=== PATIENT | female | born 1965 | race Caucasian/White ===

== ENCOUNTER 2022-11-24 14:43 | Outpatient (REF) | payer OTHER, SELFPAY ==
[2022-11-24 15:00] LABS: MANUAL DIFF FLAG NO
[2022-11-24 15:25] LABS: Basophils Absolute Auto 0.1 X10*3/uL (0.0-0.2); Basophils Percent Auto 0.7 % (0-2); Eosinophils Absolute Auto 0.2 X10*3/uL (0.0-0.4); Eosinophils Percent Auto 1.7 % (0-4); Hematocrit 43.2 % (37.0-47.0); Hemoglobin 13.9 g/dl (12.0-16.0); Imm Gran Abs Auto 0.03 X10*3/uL (0.00-0.03); Imm Gran Pct Auto 0.3 % (0.0-0.4); Lymphocytes Absolute Auto 2.9 X10*3/uL (1.2-4.9); Lymphocytes Percent Auto 32.8 % (20-40); Mean Corpuscular HGB Conc 32.2 g/dl (31.0-35.0); Mean Corpuscular Hemoglobin 29.1 pg (27.0-33.0); Mean Corpuscular Volume 90.6 fL (80.0-98.0); Mean Platelet Volume 10.5 fL (9.4-12.3); Monocytes Absolute Auto 0.7 X10*3/uL (0.1-1.2); Monocytes Percent Auto 7.7 % (2-11); Neutrophils Percent Auto 56.8 % (45-73); Platelet Count 264 X10*3/uL (160-400); Red Blood Count 4.77 X10*6/uL (4.20-5.50); Red Cell Distribution Width 12.5 % (11.0-16.0); White Blood Count 8.8 X10*3/uL (4.8-10.8)
[2022-11-24 15:53] LABS: Alanine Aminotransferase 28 U/L (0-31); Albumin Level 4.5 g/dL (3.5-5.0); Alkaline Phosphatase 54 U/L (39-117); Anion Gap 13 (12-20); Aspartate Amino Transferase 26 U/L (5-31); Bilirubin Total 0.5 mg/dL (0.0-1.0); Blood Urea Nitrogen 18 mg/dL (9-16); Carbon Dioxide 30 mmol/L (22-29); Chloride 105 mmol/L (96-108); Estimated Glomerular Filt Rate > 60; Glucose Random 90 mg/dL (60-115); Potassium 4.2 mmol/L (3.3-5.1); Sodium 144 mmol/L (135-145); Total Protein 6.8 g/dL (6.5-8.0)
== END 2022-11-24 14:44 | disposition home or self-care (01) ==
LOC: HO.LAB 14:43
PROVIDERS: PCP Internal Medicine; Visit Provider Physician Assistant
DX: R14.0 Abdominal distension (gaseous) (principal); K58.9 Irritable bowel syndrome, unspecified; Z80.0 Family history of malignant neoplasm of digestive organs
CPT/HCPCS: 36415; 80053; 85025

== ENCOUNTER 2023-01-26 07:37 | Day surgery (SDC) | payer OTHER, SELFPAY ==
[2023-01-23 09:46] VITALS: BMI 29.0
--- NOTE | 2023-01-25 12:29 | HO.ANESPROP2 ---
Documented by User: Raisa Garcia NP 01/25/23 12:29 HPI - Anesthesia Eval Consult details Narrative: 57yo F for Colonoscopy [facility] Active Problems Active Problems: All Active Problems (Updated 01/23/23 @ 09:43 by Alissa Galvan, [place]) Encounter for screening colonoscopy (Acute) Family history of colon cancer in father (Acute) Bloating (Acute) Past Medical History Medical History (Updated 01/23/23 @ 09:43 by Alissa Galvan RN) No pertinent past medical history Family History Family History Father Colon cancer Mother Breast cyst Stroke Alzheimer disease Sister Lupus Diabetes Breast cyst Surgical History Surgical History (Updated 01/23/23 @ 09:41 by Alissa Galvan RN) Hx of abdominal hysterectomy Hx of appendectomy Hx of bilateral breast reduction surgery Hx of colonoscopy Hx of tubal ligation Social History Social History Household Members: Spouse Alcohol intake: current Alcohol intake frequency: holidays/special occasions only Patient Tobacco Use Status: Former Tobacco user Use of substances other than those prescribed or required for medical reasons: No Substance Use Type Other:: gummie Are you DNR?: No Advance Directives: No Advance Directives Information Provided: Yes Recently lost weight without trying: No Nutrition Risks: No Nutritional Risk Meds Allergies Allergy/AdvReac Type Severity Reaction Status Date / Time No Known Allergies Allergy Verified 09/13/22 08:08 [No Known Allergies*] Home Medications Medication Instructions Recorded Confirmed Last Taken Type No Known Home Meds 01/26/23 01/26/23 Unknown History Exam Exam Date and Time: January 25, 2023 1229 Height,Weight and Vital Signs: Height 5 ft 1 in Weight 69.853 kg Assessment and Plan Assessment Anesthesia Assessment: Chart Reviewed Documented by User: Lali Goel MD 01/26/23 08:58 PMFSH Past Medical History Medical History (Updated 01/23/23 @ 09:43 by Alissa Galvan RN) No pertinent past medical history Family History Family History Father Colon cancer Mother Breast cyst Stroke Alzheimer disease Sister Lupus Diabetes Breast cyst Family history of problems with anesthesia: No Surgical History Surgical History (Updated 01/23/23 @ 09:41 by Alissa Galvan RN) Hx of abdominal hysterectomy Hx of appendectomy Hx of bilateral breast reduction surgery Hx of colonoscopy Hx of tubal ligation History of Problems with Anesthesia: No Social History Social History Household Members: Spouse Alcohol intake: current Alcohol intake frequency: holidays/special occasions only Patient Tobacco Use Status: Former Tobacco user Use of substances other than those prescribed or required for medical reasons: No Substance Use Type Other:: gummie Are you DNR?: No Advance Directives: No Advance Directives Information Provided: Yes Recently lost weight without trying: No Nutrition Risks: No Nutritional Risk Meds Allergies Allergy/AdvReac Type Severity Reaction Status Date / Time No Known Allergies Allergy Verified 09/13/22 08:08 [No Known Allergies*] Home Medications Medication Instructions Recorded Confirmed Last Taken Type No Known Home Meds 01/26/23 01/26/23 Unknown History Exam Airway Mallampati Class: II TM Dist: >3cm Neck ROM: Full Heart: rr Lungs: cta Assessment and Plan Assessment Anesthesia Assessment: Anesthesia Plan Discussed Final Anesthetic Review Family History of Problems with Anesthesia: No History of Problems with Anesthesia: No NPO: Yes ASA Class: II Final Preanesthetic Review: No Changes in Pt Med Stat, Meds/Allgs Chart Reviewed, Consent Obtained/Reviewed and Anes Risks/Benef Reviewed Patient Risk: Low Procedure Risk: Low Anesthetic Plan Anesthetic Plan: MAC: Disposition: Standard PACU
[2023-01-26 07:45] VITALS: BMI 29.5
[2023-01-26 07:54] VITALS: BP 116/77; PULSE 69; RESP 16; TEMP 36.8; O2SAT 98
[2023-01-26] MEDS: Lactated Ringers 1,000 ML 100 ML IVCONT (08:09)
--- NOTE | 2023-01-26 08:27 | MHC.SHP ---
Pre-Procedural Eval Section A Date of Service: 01/26/23 The patient is an INPATIENT: No The History & Physical has been completed within 30 days and I have reviewed it.: No Section B Chief Complaint: screening,fam hx of neoplasm,abd distension Relevant Family History (Specify if Yes): Yes Relevant Social History: Tobacco Use (Former smoker) Present Medications: see Short Stay Collaborative assessment Medical History: No relevant PMH History of Previous Operations: Relevant previous surgery/procedure and date(s) (Hx of abdominal hysterectomy Hx of appendectomy Hx of bilateral breast reduction surgery Hx of colonoscopy Hx of tubal ligation) Allergies: Allergies Allergy/AdvReac Type Severity Reaction Status Date / Time No Known Allergies Allergy Verified 09/13/22 08:08 [No Known Allergies*] Review of Systems Sugical H&P ROS: Negative: Constitution, Cardiovascular, Respiratory and Gastrointestinal Exam Surgical H&P Exam: Normal: Heart, Normal: Lungs and Normal: Abdomen Plan Diagnosis/Plan: Unchanged I have reviewed the history and physical and performed a pertinent physical examination on my patient. No changes have occurred unless specified. Time Spent With Patient Time: Total time managing care of this patient today ____ minutes.
--- NOTE | 2023-01-26 08:42 | W.PM.OPN ---
Operative Note Operative Note Date of Service: 01/26/23 Narrative: COLONOSCOPY TILL CECUM WITH Indication:? Colon cancer screening Endoscopist:? Memo Horta MD Anesthesia Provider:?Dr Goel Anesthesia type:?MAC Consent: Indications for the procedure and potential complications of bleeding, perforation, reaction to medications and missed diagnosis were discussed with the patient and informed consent was obtained. Instrument: Olympus PCF H 190 L variable stiffness pediatric colonoscope Monitoring: Vital signs and clinical assessment, intermittent blood pressure monitoring, continuous EKG monitoring, Pulse oximetry and Carbon Dioxide monitoring were done throughout the procedure. Please see anesthesia flowsheet. Colon withdrawl time was 14 minutes. Procedure: The patient was placed in the left lateral decubitis position and pre-procedure medications were administered. After a digital rectal examination of the ano-rectum, the video colonoscope was inserted into the rectum and advanced through the colon to the cecum. The colonoscope was slowly withdrawn in a retrograde panoramic fashion and the colon mucosa was carefully examined including a retroflexed view of the rectum. Findings and interventions are described below. Procedure Difficulty: Without difficulty Findings: Terminal Ileum: Not evaluated Cecum: A 1 cms non-bleeding AVM Ascending Colon: Normal Transverse Colon: Normal Descending Colon: Normal Sigmoid Colon: A 10 mm diminutive appearing polyp - removed with a cold snare and a cold biopsy. Moderate diverticulosis Rectum: Normal Ano-rectum: Small internal hemorrhoids Colon preparation: Good Impression and Post Procedure Diagnosis: Colonoscopy Findings: One medium sized polyp removed A 1 cms non-bleeding AVM in the cecum Moderate diverticulosis seen in the sigmoid colon Small hemorrhoids on retroflexed exam. Plan: I will send a letter with pathology results Repeat Colonoscopy interval based on path results - in 3-5 years if polyps are adenomatous and 10 years if polyps are hyperplastic. Above findings were reviewed with the patient and colon polyps and diverticulosis handouts were given in the discharge area
[2023-01-26 09:16] VITALS: BP 84/51; PULSE 78; RESP 16; TEMP 36.4; O2SAT 93
[2023-01-26 09:31] VITALS: BP 93/56; PULSE 65; RESP 16; O2SAT 95
[2023-01-26 09:46] VITALS: BP 102/60; PULSE 65; RESP 16; TEMP 36.2; O2SAT 97
== END 2023-01-26 10:55 | disposition home or self-care (01) ==
PROVIDERS: PCP Internal Medicine; Visit Provider Internal Medicine Gastroenterology
PROC: 0DJD8ZZ Inspection of Lower Intestinal Tract, Via Natural or Artificial Opening Endoscopic (ICD-10-PCS; CPT 45378; principal; 2023-01-26 08:30)
DX: Z12.11 Encounter for screening for malignant neoplasm of colon (principal); Z80.0 Family history of malignant neoplasm of digestive organs; K63.5 Polyp of colon; R14.0 Abdominal distension (gaseous); K57.30 Diverticulosis of large intestine without perforation or abscess without bleeding; K64.8 Other hemorrhoids; K55.20 Angiodysplasia of colon without hemorrhage; Z87.891 Personal history of nicotine dependence
CPT/HCPCS: 45385; 45380; 88305

== ENCOUNTER 2023-05-28 08:32 | Outpatient (AMB) | payer OTHER, SELFPAY ==
--- NOTE | 2023-05-28 08:55 | MHC.OFFWIV ---
Intake Vital Signs 05/28/23 08:56 Height 5 ft 1 in Weight 156 lb BMI 29.5 BP 120/76 Blood Pressure Location Rt brachial Position Sitting Respiration 12 Pulse 71 Pulse Source Pulse Oximeter Temp 97.1 F Temp Source Temporal Artery Scan Pulse Oximetry (%) 99 Oxygen Delivery Method Room Air Intake Visit Reasons: [facility] Eye (Right eye) Intake Note: Patient states that all she remembers is her rubbing her eyes before bed and then when she woke up her eye was red and had gunk coming out of it. 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 She reports associated mild both vision and intermittent pain to the right medial canthus. She reports clear drainage with some crust upon waking up this morning. No headache, dizziness, fever, chills, body aches, fatigue, or weakness. Denies sick contact. [facility] Medical History (Updated 05/28/23 @ 09:17 by Jordon Garcia CNP) No pertinent past medical history Surgical History (Updated 01/23/23 @ 09:41 by Alissa Galvan RN) Hx of abdominal hysterectomy Hx of appendectomy Hx of bilateral breast reduction surgery Hx of colonoscopy Hx of tubal ligation Family History Father Colon cancer Mother Breast cyst Stroke Alzheimer disease Sister Lupus Diabetes Breast cyst Social History Household Members: Spouse Alcohol intake: current Alcohol intake frequency: holidays/special occasions only Patient Tobacco Use Status: Former Tobacco user Review of Systems Const Details: Const Denies chills, Denies fatigue, Denies fever(s), Denies headache(s) and Denies weakness ENT Reports as per HPI Resp Denies cough, Denies dyspnea, Denies wheezing and Denies other (shortness of breath) Cardio Denies chest pain, Denies lightheadedness, Denies dyspnea and Denies other (palpitations) Neuro Denies dizziness, Denies headache(s), Denies numbness, Denies tingling and Denies weakness Psych Denies anxiety, Denies depression, Denies memory?loss Endo Denies fatigue Aller/Immun Denies wheezing Physical Exam Vital Signs: Last Vital Signs Temp 97.1 F 05/28/23 08:56 Pulse 71 05/28/23 08:56 Resp 12 05/28/23 08:56 BP 120/76 05/28/23 08:56 Pulse Ox 99 05/28/23 08:56 Oxygen Delivery Method Room Air 05/28/23 08:56 BMI result Body Mass Index 29.5 Const Other: Const General: well developed; No acute distress Nutritional Appearance: well nourished Orientation/consciousness: patient oriented x3 HEENT Head is normocephalic Conjunctiva of the right eye with significant erythema, clear drainage noted, no overt trauma or foreign object, no periorbital edema Bilateral ear canal and TM are normal Nasal turbinates and oropharynx are pink and moist Sinuses are nontender with palpation No auricular or cervical lymphadenopathy Eyes General: appearance normal, both eyes and all related structures Pupils: Equal, round and reactive pupils present EOM: EOMs intact bilaterally Resp Effort & Inspection: normal respiratory effort Auscultation: clear to auscultation bilaterally Cardio Rate: regular rate Rhythm: regular rhythm Heart sounds: S1 normal heart sound present, S2 normal heart sound present, no gallops, no murmurs and no rubs Bruits: no abdominal aortic bruits and no carotid bruits Neuro General: patient oriented x3 and gait normal, no focal neuro deficit Cranial nerves: Yes Equal, round and reactive pupils present Psych Affect: normal affect Assessment & Plan Assessment & Plan (1) Bacterial conjunctivitis: Code(s): H10.9 - Unspecified conjunctivitis Plan: Conjunctiva of the right eye with significant erythema, clear drainage noted, no overt trauma or foreign object, no periorbital edema Ofloxacin eyedrops as prescribed Warm compresses encouraged Return with new or worsening signs and symptoms Verbalized understanding and agreed with treatment plan. Medications: New levofloxacin 1.5% 1-2 gtt right eye q2h while awake x2 days, then q4h while awake x 5 days; Max:8 doses/day on days 1-2, 4 doses/day on days 3-7 5 mL 0RF 7 days Coding Level of Care Code New Pt Level 2 (66408) Diagnoses Bacterial conjunctivitis H10.9
[2023-05-28 08:56] VITALS: BP 120/76; PULSE 71; RESP 12; TEMP 36.2; O2SAT 99; BMI 29.5
== END 2023-05-28 09:16 | disposition home or self-care (01) ==
PROVIDERS: PCP Internal Medicine; Visit Provider Nurse Practitioner Family
DX: H10.9 Unspecified conjunctivitis (principal)
CPT/HCPCS: 99202

== ENCOUNTER 2023-06-22 13:40 | Outpatient (REF) | payer OTHER, SELFPAY ==
[2023-06-22 13:58] LABS: MANUAL DIFF FLAG NO
[2023-06-22 14:15] LABS: Basophils Absolute Auto 0.1 X10*3/uL (0.0-0.2); Basophils Percent Auto 0.5 % (0-2); Eosinophils Absolute Auto 0.1 X10*3/uL (0.0-0.4); Hematocrit 43.2 % (37.0-47.0); Hemoglobin 14.4 g/dl (12.0-16.0); Imm Gran Abs Auto 0.04 X10*3/uL (0.00-0.03); Imm Gran Pct Auto 0.4 % (0.0-0.4); Lymphocytes Percent Auto 31.2 % (20-40); Mean Corpuscular HGB Conc 33.3 g/dl (31.0-35.0); Mean Corpuscular Hemoglobin 30.1 pg (27.0-33.0); Mean Corpuscular Volume 90.4 fL (80.0-98.0); Mean Platelet Volume 10.4 fL (9.4-12.3); Monocytes Absolute Auto 0.6 X10*3/uL (0.1-1.2); Monocytes Percent Auto 6.4 % (2-11); Neutrophils Absolute Auto 5.9 x10*3/uL (2.0-8.3); Neutrophils Percent Auto 60.5 % (45-73); Platelet Count 338 X10*3/uL (160-400); Red Blood Count 4.78 X10*6/uL (4.20-5.50); White Blood Count 9.7 X10*3/uL (4.8-10.8)
[2023-06-22 16:38] LABS: Alanine Aminotransferase 15 U/L (0-31); Albumin Level 4.4 g/dL (3.5-5.0); Alkaline Phosphatase 61 U/L (39-117); Anion Gap 15 (12-20); Aspartate Amino Transferase 18 U/L (5-31); Bilirubin Total 0.4 mg/dL (0.0-1.0); Blood Urea Nitrogen 9 mg/dL (9-16); Calcium 9.9 mg/dL (8.4-10.2); Carbon Dioxide 26 mmol/L (22-29); Chloride 104 mmol/L (96-108); Estimated Glomerular Filt Rate > 60; Glucose Random 154 mg/dL (60-115); Iron 66 mcg/dL (30-160); Percent Iron Saturation 24 % (15-50); Potassium 3.6 mmol/L (3.3-5.1); Sodium 141 mmol/L (135-145); Total Iron Binding Capacity 274 mcg/dL (228-428); Total Protein 7.3 g/dL (6.5-8.0); Unsaturated Iron Binding 208 ug/dL
[2023-06-22 16:47] LABS: Vitamin B12 434 pg/mL (200-900)
[2023-06-22 17:06] LABS: Ferritin 290 ng/mL (10-250); T4 Thyroxine 8.5 ug/dL (4.5-12.0); Thyroid Stimulating Hormone 1.66 uIU/mL (0.32-4.0); Vitamin D 25-OH Total 42.3 ng/mL (>30)
== END 2023-06-22 13:41 | disposition home or self-care (01) ==
LOC: HO.LAB 13:40
PROVIDERS: PCP Internal Medicine; Visit Provider Physician Assistant Medical
DX: E04.2 Nontoxic multinodular goiter (principal); R53.83 Other fatigue
CPT/HCPCS: 36415; 80053; 82306; 82607; 82728; 83540; 84436; 84443; 85025

== ENCOUNTER 2023-07-03 13:24 | Outpatient (REF) | payer OTHER, SELFPAY ==
--- NOTE | ~2023-07-03 | US_ITS ---
EXAMINATION: US THYROID CLINICAL INFORMATION: Goiter COMPARISON: None available. TECHNIQUE: Linear transducer grayscale and color Doppler examination with attention to the region of the thyroid. FINDINGS: SIZE: Measurements of the thyroid lobes and nodules are given in sagittal, anteroposterior and transverse dimensions respectively. Right Thyroid Lobe: 4.8 x 1.4 x 1.8 cm, volume 6.3 mL. Parenchyma: The gland echotexture is heterogeneous. Thyroid vascularity is normal. Left Thyroid Lobe: 4.7 x 1.7 x 2.1 cm, volume 8.8 mL. Parenchyma: The gland echotexture is heterogeneous. Thyroid vascularity is normal. Isthmus: 0.3 cm in maximum AP dimension. Estimated total number of nodules greater than or equal to 1 cm: 2. Certified Medication Aide nodules are described as follows: 1. Location: Right mid. Size: 1.4 x 0.8 x 1.2 cm, volume 0.7 mL. Nodule characteristics: Composition: Solid (2). Echogenicity: Isoechoic (1). Shape: Not taller than wide (0). Margins: Ill-defined (0). Echogenic Foci: None (0). ACR TI-RADS total points: 3 ACR TI-RADS category: 3 2. Location: Right inferior. Size: 0.9 x 0.8 x 0.8 cm, volume 0.3 mL. Nodule characteristics: Composition: Solid/almost completely solid (2). Echogenicity: Isoechoic (1). Shape: Not taller than wide (0). Margins: Ill-defined (0). Echogenic Foci: None (0). ACR TI-RADS total points: 3 ACR TI-RADS category: 3 3. Location: Right inferior. Size: 0.8 x 0.7 x 1.0 cm, volume 0.3 mL. Nodule characteristics: Composition: Solid (2). Echogenicity: Isoechoic (1). Shape: Not taller than wide (0). Margins: Ill-defined (0). Echogenic Foci: None (0). ACR TI-RADS total points: 3 ACR TI-RADS category: 3 4. Location: Left superior. Size: 1.1 x 0.5 x 1.1 cm, volume 0.3 mL. Nodule characteristics: Composition: Mixed cystic and solid (1). Echogenicity: Isoechoic (1). Shape: Not taller than wide (0). Margins: Smooth (0). Echogenic Foci: None (0). ACR TI-RADS total points: 2 ACR TI-RADS category: 2 5. Location: Left mid. Size: 0.9 x 0.9 x 0.9 cm, volume 0.4 mL. Nodule characteristics: Composition: Solid/almost completely solid (2). Echogenicity: Isoechoic (1). Shape: Not taller than wide (0). Margins: Smooth (0). Echogenic Foci: None (0). ACR TI-RADS total points: 3 ACR TI-RADS category: 3 NODES: No lymphadenopathy is seen in the tissue surrounding the thyroid gland. US/US thyroid IMPRESSION: 1. Mild thyroid nodules are seen, as detailed. No specific follow-up imaging is recommended. 2. There is heterogeneous thyroid echotexture, which can be associated with thyroiditis. ACR TI-RADS RECOMMENDATION REFERENCE: Ultrasound-guided fine-needle aspiration, followup ultrasound, no further follow up. * TR1 (0 point) and TR2 (2 points): No FNA or follow up. * TR3 (3 points): FNA if more than or equal to 2.5 cm in maximum dimension, followup ultrasound in 1, 3 and 5 years if 1.5 to 2.4 cm in maximum dimension. * TR4 (4-6 points): FNA if more than or equal to 1.5 cm in maximum dimension, followup ultrasound in 1, 2, 3 and 5 years if 1 to 1.4 cm in maximum dimension. * TR5 (more than or equal to 7 points): FNA if more than or equal to 1 cm in maximum dimension, followup ultrasound every year for 5 years if 0.5 to 0.9 cm in maximum dimension. * TR3, TR4 or TR5 nodules that are below the size threshold for followup receive no follow up.
== END 2023-07-03 13:25 | disposition home or self-care (01) ==
LOC: HO.US 13:24
PROVIDERS: PCP Internal Medicine; Visit Provider Physician Assistant Medical
DX: E04.2 Nontoxic multinodular goiter (principal)
CPT/HCPCS: 76536

== ENCOUNTER 2023-07-20 07:52 | Outpatient (AMB) | payer OTHER, SELFPAY ==
[2023-07-20 08:25] VITALS: BP 118/75; PULSE 95; BMI 29.1
--- NOTE | 2023-07-20 08:25 | MHC.OFFVIS ---
Intake Vital Signs 07/20/23 08:25 Height 5 ft 1 in Weight 154 lb BMI 29.1 BP 118/75 Blood Pressure Location Rt brachial Position Sitting Pulse 95 Intake Visit Reasons: Multinodular goiter Intake Note: Patient referred for multinodular goiter. Reports had an episode in May of pain and felt like sharp stings in throat. Pain has subsided since then. Currently on no meds for thyroid. Had thyroid u/s on 07-03-23. 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 She has never had sent symptoms before. She is unclear of the cause of this and thought perhaps it was related to her thyroid goiter. Patient has not had a formal endocrine thyroid workup for this aside from recent ultrasound and baseline thyroid labs, the latter which were within normal limits. Patient denies any specific hyper or hypothyroid symptoms Chart was reviewed patient evaluated. [facility] Medical History No pertinent past medical history Surgical History Hx of colonoscopy Hx of tubal ligation Hx of appendectomy Hx of bilateral breast reduction surgery Hx of abdominal hysterectomy Family History Father Colon cancer Mother Breast cyst Stroke Alzheimer disease Sister Lupus Diabetes Breast cyst Social History Household Members: Spouse Alcohol intake: current Alcohol intake frequency: holidays/special occasions only Patient Tobacco Use Status: Former Tobacco user Physical Exam Vital Signs: Last Vital Signs Pulse 95 07/20/23 08:25 BP 118/75 07/20/23 08:25 BMI result Body Mass Index 29.1 HEENT Other: No cervical periclavicular axillary adenopathy. Grossly thyroid gland was mildly enlarged , but no obvious masses or tracheal deviation demonstrated. Assessment & Plan Assessment & Plan (1) Thyroid goiter: Code(s): E04.9 - Nontoxic goiter, unspecified Plan Current recommendation is to arrange for at formal endocrine evaluation, and direct further therapy based on their recommendations. All questions were answered. Arrangements were made for this. Coding Level of Care Code New Pt Level 4 (05625) Diagnoses Thyroid goiter E04.9
== END 2023-07-20 09:05 | disposition home or self-care (01) ==
PROVIDERS: PCP Internal Medicine; Referring Provider Physician Assistant Medical; Visit Provider Surgery
DX: E04.9 Nontoxic goiter, unspecified (principal)
CPT/HCPCS: 99204

== ENCOUNTER → 2023-07-20 07:52 | Outpatient (BNVA) | payer OTHER, SELFPAY | PROVIDERS: PCP Internal Medicine; Referring Provider Physician Assistant Medical; Visit Provider Surgery ==

== ENCOUNTER 2024-02-27 08:26 | Outpatient (AMB) | payer OTHER, SELFPAY ==
--- NOTE | 2024-02-27 08:36 | MHC.PC.OV ---
Vital Signs 02/27/24 08:39 Height 5 ft 1 in Weight 156 lb 6 oz BMI 29.5 BP 102/58 L Blood Pressure Location Lt brachial Position Sitting Respiration 12 Pulse 111 H Pulse Source Pulse Oximeter Temp 98.1 F Temp Source Oral Pulse Oximetry (%) 94 Oxygen Delivery Method Room Air Intake Visit Reasons: PE Intake Note: New patient visit Last Code Striper Required: No Post menopausal: Yes Allergies No Known Allergies [No Known Allergies*] Allergy (Verified 02/27/24 08:36) Tobacco use date assessed: 02/27/24 Dental Screening Dental Screen Date: 02/27/24 Did you have a dental visit in the last 12 months?: Yes Did you have a dental problem in the last 6 months where you did not have access to dental care?: No Was dental information given to patient?: Patient has dentist HPI HPI Comments History of Present Illness Details The patient is a 58 year old female with a past medical history of obesity, low back pain, presenting to [facility] care. Remains on phentermine which has helped her keep her weight down. She denies palpitations. No elevations in blood pressures MSK: Pulls her back ~2-3 times per year. This is fairly severe for about a week. She has been having intermittent pain at the base of the right thumb. She types daily. This does often aggravate pain levels [facility] Medical History (Updated 02/27/24 @ 09:59 by Malika Harrison MD) No pertinent past medical history Surgical History Hx of colonoscopy Hx of tubal ligation Hx of appendectomy Hx of bilateral breast reduction surgery Hx of abdominal hysterectomy Family History Father Colon cancer Mother Breast cyst Stroke Alzheimer disease Sister Lupus Diabetes Breast cyst Social History (Updated 02/27/24 @ 08:39 by Jennie Carrera CMA) Household Members: Spouse Housing: House Alcohol intake: current Alcohol intake frequency: holidays/special occasions only Patient Tobacco Use Status: Former Tobacco user Cigarette Packs Per Day: 1.5 Years Smoked: 28 e-Cigarette/Vaping Use: Never Used Second Hand Smoke Exposure: No Substance Use Type: Marijuana service: Yes Current occupational status: employed 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 1. Little interest or pleasure in doing things: not at all 2. Feeling down, depressed, or hopeless: not at all 3. Trouble falling or staying asleep, or sleeping too much: not at all 4. Feeling tired or having little energy: not at all 5. Poor appetite or overeating: not at all 6. Feeling bad about yourself - or that you are a failure or have let yourself or your family down: not at all 7. Trouble concentrating on things, such as reading the newspaper or watching television: not at all 8. Moving or speaking so slowly that other people could have noticed. Or the opposite - being so fidgety or restless that you have been moving around a lot more than usual: not at all 9. Thoughts that you would be better off or of hurting yourself in some way: not at all Total score: 0 Depression Screening Interpretation: Negative (neg) Depression Screening Done: Yes 62664 - PHQ-9 Billing: Yes Source: Developed by Drs. Carlyle Wan, Keren Shelton, Luther Vicente and colleagues, with an educational yudi from [employer]. Thrive Questionnaire Date Thrive assessed: 02/27/24 I am a: Patient What is your living situation today?: I have a steady place to live Within the past 12 months, did the food you bought not last and you didn't have the money to get more?: Never true Within the past 12 months, did you worry whether your food would run out before you got money to buy more?: Never true Do you have trouble paying for medicines?: No Do you have trouble getting transportation to medical appointments?: No Do you have trouble paying your heating and electricity bill?: No Do you have trouble taking care of your child, family member or friend?: No Do you have trouble with day-to-day activities such as bathing, preparing meals, shopping, managing finances, etc.?: No Are you currently unemployed and looking for a job?: No Are you interested in more education?: No Please select the resources that you would like help with: None Currently or been in a relationship where the following occur: no concerns reported THRIVE Score: 0 AUDIT C Alcohol Use Questionnaire (AUDIT-C) 1. How often do you have a drink containing alcohol?: Monthly or less (4-5 times a year) 2. How many drinks containing alcohol do you have on a typical day when you are drinking?: 1 or 2 3. How often do you have six or more drinks on one occasion?: Never Total Score: 1 DEMI-7 AMB Questionnaire DEMI-7 Date DEMI - 7 assessed: 02/27/24 Feeling nervous, anxious, or on edge: 0 = Not at all Not being able to stop or control worryin = Not at all Worrying too much about different things: 0 = Not at all Trouble relaxin = Not at all Being so restless that it is hard to sit still: 0 = Not at all Becoming easily annoyed or irritable: 0 = Not at all Feeling afraid as if something awful might happen: 0 = Not at all Total DEMI-7 score (0-4 normal; 5-9 mild; 10-14 moderate; 15-21 severe): 0 Source: Developed by Drs. Carlyle Wan, Keren Shelton, Luther Vicente and colleagues, with an educational yudi from [employer]. DEMI-7 Assessment Billing DEMI-7 Assessment Tool: DEMI-7 Assessment 97051 Review of Systems Const Details: see HPI Physical exam (Primary Care) Vital Signs: Last Vital Signs Temp 98.1 F 02/27/24 08:39 Pulse 111 H 02/27/24 08:39 Resp 12 02/27/24 08:39 BP 102/58 L 02/27/24 08:39 Pulse Ox 94 02/27/24 08:39 Oxygen Delivery Method Room Air 02/27/24 08:39 PHYSICAL EXAM: GENERAL: Alert and oriented x 3. NAD EYES: EOMI. Anicteric. HENT: Moist mucous membranes. No scleral icterus. No cervical lymphadenopathy. LUNGS: Clear to auscultation bilaterally. CARDIOVASCULAR: Regular rate and rhythm. No murmur. No JVD. ABDOMEN: Soft, non-tender +bs EXTREMITIES: No edema. Non-tender. SKIN: No rashes or lesions. Warm. NEUROLOGIC: No focal neurological deficits. CN II-XII grossly intact PSYCHIATRIC: Cooperative. Appropriate mood and affect BMI result Body Mass Index 29.5 Tobacco/Smoking Status: Tobacco use Status Tobacco use date assessed 02/27/24 02/27/24 08:43 Patient Tobacco Use Status Former Tobacco user 02/27/24 08:43 e-Cigarette/Vaping Use Never Used 02/27/24 08:43 Depression Screening Interpretation: Negative (neg) Currently or been in a relationship where the following occur: no concerns reported Assessment and Plan Assessment & Plan (1) Arthritis of carpometacarpal (CMC) joint of right thumb: Comment: Recommended voltaren. Exercises given. She will call if interested in ortho referral Code(s): M18.11 - Unilateral primary osteoarthritis of first carpometacarpal joint, right hand (2) Lumbosacral disc disease: Comment: Discussed calling when flare occurs or if decides she wants to pursue PT or a referral Code(s): M51.9 - Unspecified thoracic, thoracolumbar and lumbosacral intervertebral disc disorder (3) Overweight: Code(s): E66.3 - Overweight (4) De Quervain's disease (tenosynovitis): Code(s): M65.4 - Radial styloid tenosynovitis [de Quervain] Orders: Orders Complete Blood Count Auto Diff Today E04.9 - Nontoxic goiter, unspecified, R14.0 - Abdominal distension (gaseous), Z13.220 - Encounter for screening for lipoid disorders, Z13.228 - Encounter for screening for other metabolic disorders Lipid Panel Today E04.9 - Nontoxic goiter, unspecified, R14.0 - Abdominal distension (gaseous), Z13.220 - Encounter for screening for lipoid disorders, Z13.228 - Encounter for screening for other metabolic disorders TSH reflex Free T4 Today E04.9 - Nontoxic goiter, unspecified, R14.0 - Abdominal distension (gaseous), Z13.220 - Encounter for screening for lipoid disorders, Z13.228 - Encounter for screening for other metabolic disorders Comprehensive Met. Panel Today E04.9 - Nontoxic goiter, unspecified, R14.0 - Abdominal distension (gaseous), Z13.220 - Encounter for screening for lipoid disorders, Z13.228 - Encounter for screening for other metabolic disorders Medications: New phentermine 37.5 mg PO DAILY 30 tabs 3RF Coding Level of Care Code Est Pt Level 4 (77963) Complex EM visit Add On G2211 Diagnoses Arthritis of carpometacarpal (CMC) joint of right thumb M18.11 Lumbosacral disc disease M51.9 Overweight E66.3 De Quervain's disease (tenosynovitis) M65.4 Additional Codes DEMI-7 Assessment Billing - DEMI-7 Assessment Tool: DEMI-7 Assessment 02360 ([id number])
[2024-02-27 08:39] VITALS: BP 102/58; PULSE 111; RESP 12; TEMP 36.7; O2SAT 94; BMI 29.5
== END 2024-02-27 09:14 | disposition home or self-care (01) ==
PROVIDERS: PCP Internal Medicine; Visit Provider Internal Medicine
DX: M18.11 Unilateral primary osteoarthritis of first carpometacarpal joint, right hand (principal); M51.9 Unspecified thoracic, thoracolumbar and lumbosacral intervertebral disc disorder; E66.3 Overweight; Z68.29 Body mass index [BMI] 29.0-29.9, adult; M65.4 Radial styloid tenosynovitis [de Quervain]
CPT/HCPCS: 99214; G2211

== ENCOUNTER 2025-02-10 07:28 | Outpatient (REF) | payer OTHER, SELFPAY ==
[2025-02-10 07:38] LABS: MANUAL DIFF FLAG NO
[2025-02-10 08:15] LABS: Basophils Percent Auto 0.4 % (0-2); Eosinophils Absolute Auto 0.1 X10*3/uL (0.0-0.4); Eosinophils Percent Auto 1.8 % (0-4); Hematocrit 42.6 % (37.0-47.0); Hemoglobin 14.2 g/dl (12.0-16.0); Imm Gran Abs Auto 0.03 X10*3/uL (0.00-0.03); Imm Gran Pct Auto 0.4 % (0.0-0.4); Lymphocytes Absolute Auto 2.7 X10*3/uL (1.2-4.9); Lymphocytes Percent Auto 34.5 % (20-40); Mean Corpuscular HGB Conc 33.3 g/dl (31.0-35.0); Mean Corpuscular Volume 89.9 fL (80.0-98.0); Mean Platelet Volume 10.2 fL (9.4-12.3); Monocytes Absolute Auto 0.7 X10*3/uL (0.1-1.2); Neutrophils Absolute Auto 4.2 x10*3/uL (2.0-8.3); Neutrophils Percent Auto 53.9 % (45-73); Platelet Count 273 X10*3/uL (160-400); Red Blood Count 4.74 X10*6/uL (4.20-5.50); Red Cell Distribution Width 11.9 % (11.0-16.0); White Blood Count 7.7 X10*3/uL (4.8-10.8)
[2025-02-10 08:54] LABS: Alanine Aminotransferase 36 U/L (0-31); Albumin Level 4.6 g/dL (3.5-5.0); Alkaline Phosphatase 54 U/L (39-117); Anion Gap 9 (12-20); Aspartate Amino Transferase 29 U/L (5-31); Bilirubin Total 0.4 mg/dL (0.0-1.0); Blood Urea Nitrogen 15 mg/dL (9-16); Calcium 9.8 mg/dL (8.4-10.2); Carbon Dioxide 25 mmol/L (22-29); Chloride 109 mmol/L (96-108); Cholesterol 241 mg/dL (<200); Estimated Glomerular Filt Rate > 60; Glucose Random 102 mg/dL (60-115); HDL Cholesterol 53 mg/dL (>40); LDL Cholesterol Calculated 156 mg/dL (<100); Sodium 139 mmol/L (135-145); Total Protein 6.9 g/dL (6.5-8.0); Triglycerides 163 mg/dL (<150)
[2025-02-10 09:11] LABS: TSH reflex Free T4 2.27 uIU/mL (0.32-4.0)
== END 2025-02-10 07:29 | disposition home or self-care (01) ==
LOC: HO.LAB 07:28
PROVIDERS: PCP Internal Medicine; Visit Provider Internal Medicine
DX: E04.9 Nontoxic goiter, unspecified (principal); R14.0 Abdominal distension (gaseous); Z13.228 Encounter for screening for other metabolic disorders; Z13.220 Encounter for screening for lipoid disorders
CPT/HCPCS: 36415; 80053; 80061; 84443; 85025

== ENCOUNTER 2025-03-02 08:26 | Outpatient (AMB) | payer OTHER, SELFPAY ==
--- NOTE | 2025-03-02 08:32 | MHC.PC.OV ---
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 HLD-LDL 156. Declines statin therapy. Remains on phentermine which has helped her keep her weight down. She denies palpitations. No elevations in blood pressures MSK: Pulls her back ~2-3 times per year. Uses lidocaine patches 5% which helps with the pain. She has been having intermittent pain at the base of the right thumb. Colonoscopy: 2022 Mammo: overdue, ordered ROS see HPI PHYSICAL EXAM: GENERAL: Alert and oriented x 3. NAD EYES: EOMI. Anicteric. HENT: Moist mucous membranes. No scleral icterus. No cervical lymphadenopathy. LUNGS: Clear to auscultation bilaterally. CARDIOVASCULAR: Regular rate and rhythm. No murmur. No JVD. ABDOMEN: Soft, non-tender +bs EXTREMITIES: No edema. Non-tender. SKIN: dyshidrotic eczema left foot NEUROLOGIC: No focal neurological deficits. CN II-XII grossly intact PSYCHIATRIC: Cooperative. Appropriate mood and affect [facility] Medical History No pertinent past medical history Surgical History Hx of colonoscopy Hx of tubal ligation Hx of appendectomy Hx of bilateral breast reduction surgery Hx of abdominal hysterectomy Family History Father Colon cancer Mother Breast cyst Stroke Alzheimer disease Sister Lupus Diabetes Breast cyst Social History Household Members: Spouse Housing: House Alcohol intake: current Alcohol intake frequency: holidays/special occasions only Patient Tobacco Use Status: Former Tobacco user Cigarette Packs Per Day: 1.5 Years Smoked: 28 e-Cigarette/Vaping Use: Never Used Second Hand Smoke Exposure: No Substance Use Type: Marijuana service: Yes Current occupational status: employed 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 1. Little interest or pleasure in doing things: several days 2. Feeling down, depressed, or hopeless: not at all 3. Trouble falling or staying asleep, or sleeping too much: several days 4. Feeling tired or having little energy: several days 5. Poor appetite or overeating: not at all 6. Feeling bad about yourself - or that you are a failure or have let yourself or your family down: not at all 7. Trouble concentrating on things, such as reading the newspaper or watching television: not at all 8. Moving or speaking so slowly that other people could have noticed. Or the opposite - being so fidgety or restless that you have been moving around a lot more than usual: not at all 9. Thoughts that you would be better off or of hurting yourself in some way: not at all Total score: 3 Depression Screening Interpretation: Negative Depression Screening Done: Yes 47030 - PHQ-9 Billing: Yes Source: Developed by Drs. Carlyle Wan, Keren Shelton, Luther Vicente and colleagues, with an educational yudi from [employer] Thrive Questionnaire Date Thrive assessed: 03/02/25 I am a: Patient What is your living situation today?: I have a steady place to live Within the past 12 months, did the food you bought not last and you didn't have the money to get more?: I choose not to answer this question Within the past 12 months, did you worry whether your food would run out before you got money to buy more?: I choose not to answer this question Do you have trouble paying for medicines?: No Do you have trouble getting transportation to medical appointments?: No Do you have trouble paying your heating and electricity bill?: No Do you have trouble taking care of your child, family member or friend?: No Do you have trouble with day-to-day activities such as bathing, preparing meals, shopping, managing finances, etc.?: No Are you currently unemployed and looking for a job?: No Are you interested in more education?: No Please select the resources that you would like help with: None Currently or been in a relationship where the following occur: No concerns reported THRIVE Score: 0 AUDIT C Alcohol Use Questionnaire (AUDIT-C) 1. How often do you have a drink containing alcohol?: Monthly or less 2. How many drinks containing alcohol do you have on a typical day when you are drinking?: 1 or 2 3. How often do you have six or more drinks on one occasion?: Never Total Score: 1 DEMI-7 AMB Questionnaire DEMI-7 Date DEMI - 7 assessed: 03/02/25 Feeling nervous, anxious, or on edge: 0 = Not at all Not being able to stop or control worryin = Not at all Worrying too much about different things: 0 = Not at all Trouble relaxin = Not at all Being so restless that it is hard to sit still: 0 = Not at all Becoming easily annoyed or irritable: 0 = Not at all Feeling afraid as if something awful might happen: 0 = Not at all Total DEMI-7 score (0-4 normal; 5-9 mild; 10-14 moderate; 15-21 severe): 0 Source: Developed by Drs. Carlyle Wan, Keren Shelton, Luther Vicente and colleagues, with an educational yudi from [employer] DEMI-7 Assessment Billing DEMI-7 Assessment Tool: DEMI-7 Assessment 90345 Physical exam (Primary Care) Vital Signs: Last Vital Signs Pulse 105 H 03/02/25 08:34 Resp 14 03/02/25 08:34 BP 110/68 03/02/25 08:34 Pulse Ox 96 03/02/25 08:34 Oxygen Delivery Method Room Air 03/02/25 08:34 BMI result Body Mass Index 30.4 Tobacco/Smoking Status: Tobacco use Status Tobacco use date assessed 03/02/25 03/02/25 08:41 Patient Tobacco Use Status Former Tobacco user 03/02/25 08:41 e-Cigarette/Vaping Use Never Used 03/02/25 08:41 PHQ-9: PHQ-9 Score PHQ-9: Total score 3 03/02/25 08:41 Depression Screening Interpretation: Negative Thrive Assessment: Date of Thrive Assessment Date Thrive assessed 03/02/25 03/02/25 08:41 Currently or been in a relationship where the following occur: No concerns reported Coding Level of Care Code Est Pt Prev Care 40-64y(02340) Diagnoses Physical exam Z00.00 Lumbosacral disc disease M51.9 Thyroid goiter E04.9 Hyperlipidemia, unspecified hyperlipidemia type E78.5 Hyperlipidemia type: unspecified Additional Codes DEMI-7 Assessment Billing - DEMI-7 Assessment Tool: DEMI-7 Assessment 36217 ([id number]) PHQ-9 - 67482 - PHQ-9 Billing: Yes ([id number]) Assessment & Plan Assessment & Plan (1) Physical exam: Code(s): Z00.00 - Encounter for general adult medical examination without abnormal findings Category: Medical (2) Lumbosacral disc disease: Comment: Discussed calling when flare occurs or if decides she wants to pursue PT or a referral Code(s): M51.9 - Unspecified thoracic, thoracolumbar and lumbosacral intervertebral disc disorder Category: Medical (3) Thyroid goiter: Code(s): E04.9 - Nontoxic goiter, unspecified Category: Medical (4) Hyperlipidemia: Code(s): E78.5 - Hyperlipidemia, unspecified Category: Medical Qualifiers: Hyperlipidemia type: unspecified Qualified Code(s): E78.5 - Hyperlipidemia, unspecified Plan 59 y/o presenting for physical exam Interval history reviewed Preventive measures for age discussed. Mammogram ordered HLD-decrease saturated fats. Efforts toward weight loss. Repeat lipids 6 months. Orders: Orders MM screening mammo BI Today Z12.31 - Encounter for screening mammogram for malignant neoplasm of breast Lipid Panel 6 Months E78.5 - Hyperlipidemia, unspecified Medications: New lidocaine 5% leave on most painful area for up to 12 hrs 1 patch topical DAILY 30 ea 1RF M51.9 - Unspecified thoracic, thoracolumbar and lumbosacral intervertebral disc disorder clotrimazole-betamethasone 1-0.05 % 1 appl topical BID 4 weeks 45 grams 0RF
[2025-03-02 08:34] VITALS: BP 110/68; PULSE 105; RESP 14; O2SAT 96; BMI 30.4
== END 2025-03-02 12:37 | disposition home or self-care (01) ==
LOC: HO.HMCFM 08:27
PROVIDERS: PCP Internal Medicine; Visit Provider Internal Medicine
DX: Z00.00 Encounter for general adult medical examination without abnormal findings (principal); M51.9 Unspecified thoracic, thoracolumbar and lumbosacral intervertebral disc disorder; E04.9 Nontoxic goiter, unspecified; E78.5 Hyperlipidemia, unspecified

== ENCOUNTER → 2025-03-02 08:26 | Outpatient (BNVA) | payer OTHER, SELFPAY | PROVIDERS: PCP Internal Medicine; Visit Provider Internal Medicine | DX: Z00.00 Encounter for general adult medical examination without abnormal findings (principal); M51.9 Unspecified thoracic, thoracolumbar and lumbosacral intervertebral disc disorder; E04.9 Nontoxic goiter, unspecified; E78.5 Hyperlipidemia, unspecified | CPT/HCPCS: 96127 ==

== ENCOUNTER 2025-05-14 07:35 | Outpatient (REF) | payer OTHER, SELFPAY ==
--- OUTSIDE RECORDS SUMMARY | 2025-05-14 07:38 | XMS_ITS | Encounter Summary ---
Author Organization [facility] Address [address] [place] [address] Care Team Providers Care Machinist Bench Name Role Phone Kala Lehman MD Primary Care Provider Unava ilVivian Banuelos MD Primary Care Provider Unavail able Kala Lehman MD Primary Care Provider Unava patriciaable Encounter Details Date Type Department Care Team Description 01/30/2017 Business Doc Medical Records [address] [place] [id number] Abstract, Provider Social History Tobacco Use Types Packs/Day Years Used Date Smoking Tobacco: Former Cigarettes 1 26 Q uit: 05/29/2013 Smokeless Tobacco: Never Comments:Wants to quit Alcohol Use Standard Drinks/Week Comments Yes 2.5 (1 standard drink = 0.6 oz p ure alcohol) wine Sex Assigned at Date Recorded Not on file documented as of this encounter Plan of Treatment Not on file documented as of this encounter Visit Diagnoses Not on filedocumented in this encounter Care Teams Machinist Bench Relationship Specialty Start Date End Date Kala Lehman MD PCP - General 12/06/07 03/07/17 Vivian Arboleda MD PCP - General Internal Medicine 03/08/17 05/03/17 Kala Lehman MD PCP - General Internal Medicine 05/04/17 documented as of this encounter
== END 2025-05-14 07:36 | disposition home or self-care (01) ==
LOC: HO.MAMMO 07:35
PROVIDERS: PCP Internal Medicine; Visit Provider Internal Medicine
DX: Z12.31 Encounter for screening mammogram for malignant neoplasm of breast (principal)
CPT/HCPCS: 77063; 77067

== ENCOUNTER → 2025-05-14 07:45 | Outpatient (BNV) | payer OTHER, SELFPAY | PROVIDERS: PCP Internal Medicine; Visit Provider Radiology Body Imaging | DX: Z12.31 Encounter for screening mammogram for malignant neoplasm of breast (principal) | CPT/HCPCS: 77063; 77067 ==